=== PATIENT | female | born 1990 | race Caucasian/White ===

== ENCOUNTER 2019-05-08 10:18 | Emergency (ER) | payer BC ==
[2019-05-08] MEDS ORDERED: SODIUM CHLORIDE 0.9% 500 ML 500 ML IV ONE (11:02)
[2019-05-08] MEDS ORDERED: SODIUM CHLORIDE 0.9% 1,000 ML IV ONE (11:02)
[2019-05-08 12:02] LABS: Appearance,Urine Clear (Clear); Bilirubin,Urine Negative (Negative); Blood,Urine Negative (Negative); Color,Urine Colorless; Glucose,Urine (UA) Negative (Negative); Ketones,Urine Negative (Negative); Leukocyte Esterase,Urine Negative (Negative); Nitrite,Urine Negative (Negative); Protein,Urine Negative (Negative); Specific Gravity,Urine 1.006 (1.001-1.035); Urobilinogen,Urine <2.0 mg/dL (<2.0)
--- NOTE | 2019-05-08 12:02 | ED ---
Abdominal Pain HPI - General Chief Complaint: Abdominal Pain Stated Complaint: upper abdominal pain Time Seen by Provider: 05/08/19 11:01 Source: patient Mode of arrival: ambulatory Limitations: no limitations - History of Present Illness Initial Comments: 28-year-old female personal history of factor V deficiency family history of aortic dissection less than age 30 (2 second cousins on mother's side) presents emergency department for chief complaint of epigastric pain on and off for 6 weeks. Patient states she has had epigastric pain occasionally she states the pattern is random she states that it seems to happen while she is walking at times and causes her to feel lightheaded. Patient states it is a burning pain denies a sharp stabbing pain/tripping tearing pain she denies any radiation to the back. Patient denies any chest pain she states sometimes she feels her breath. Patient denies fever, vomiting, diarrhea, alcohol abuse, NSAID abuse. Denies cough or URI symptoms. Denies chest pain. Patient states she is under a lot of stress. Denies melena or hematochezia. Patient states it began this morning again for the fourth time and she was concerned and presents emergency department for evaluation. Remaining review of systems negative patient appears well arrival vital signs stable no signs of acute distress. - Related Data Home Medications Medication Instructions Recorded Confirmed Aspirin/Acetaminophen/Caffeine 2 tab PO Q12H PRN 05/08/19 05/08/19 [Excedrin Extra Strength Caplet] Previous Rx's Medication Instructions Recorded Omeprazole 20 mg PO DAILY 15 Days #15 05/08/19 capsule. Allergies Allergy/AdvReac Type Severity Reaction Status Date / Time No Known Allergies Allergy Verified 05/08/19 11:05 Review of Systems ROS Statement: Those systems with pertinent positive or pertinent negative responses have been documented in the HPI. ROS Other: All systems not noted in ROS Statement are negative. Past Medical History Past Medical History: Asthma History of Any Multi-Drug Resistant Organisms: None Reported Past Surgical History: Appendectomy Additional Past Surgical History / Comment(s): appendix 2009, wisdom teeth extracted. Past Anesthesia/Blood Transfusion Reactions: No Reported Reaction Past Psychological History: No Psychological Hx Reported Smoking Status: Never smoker Past Alcohol Use History: None Reported Past Drug Use History: None Reported - Past Family History Father Family Medical History: Cancer Additional Family Medical History / Comment(s): thyroid cancer, and kidney failure General Exam - General Exam Comments Initial Comments: General: The patient is awake and alert, in no distress, and does not appear acutely ill. Eye: Pupils are equal, round and reactive to light, extra-ocular movements are intact. No nystagmus. There is normal conjunctiva bilaterally. No signs of icterus. Ears, nose, mouth and throat: There are moist mucous membranes and no oral l esions. Neck: The neck is supple, there is no tenderness or JVD. Cardiovascular: There is a regular rate and rhythm. No murmur, rub or gallop is appreciated. Respiratory: Lungs are clear to auscultation, respirations are non-labored, breath sounds are equal. No wheezes, stridor, rales, or rhonchi. Gastrointestinal: Soft, non-distended, mild tenderness to palpation of the epigastric portion of the abdomen without masses or organomegaly noted. There is no rebound or guarding present. No CVA tenderness. Bowel sounds are unremarkable. Musculoskeletal: Normal ROM, no tenderness. Strength 5/5. Sensation intact. Pulses equal bilaterally 2+. Neurological: A&O x 3. CN II-XII intact, There are no obvious motor or sensory deficits. Coordination appears grossly intact. Speech is normal. Skin: Skin is warm and dry and no rashes or lesions are noted. Psychiatric: Cooperative, appropriate mood & affect, normal judgment. Limitations: no limitations Course Vital Signs 05/08/19 05/08/19 10:35 15:02 Temperature 98.1 F 98.6 F Pulse Rate 74 68 Respiratory 17 16 Rate Blood Pressure 139/69 112/69 O2 Sat by Pulse 100 100 Oximetry Medical Decision Making - Medical Decision Making Given patient's history of factor V nonspecific appearing epigastric pain patient's CT angiography obtained revealing no evidence of dissection or pulmonary embolism. Patient had no elevation of lipase no increase in transaminase levels are alkaline phosphatase. Patient chest x-ray negative EKG no acute findings with a negative troponin. Patient appeared well symptoms atypical. Differential diagnosis includes peptic ulcer. After discussing case with attending provider Dr. Lopez refjudi patient still for discharge with outpatient primary care follow-up I did admit the patient get a referral to gastroenterology, and possible cardiac evaluation with Holter monitor for these episodes; although I have low suspicion for cardiac process at this time given history. Return parameters were discussed verbalized understanding and states she is comfortable discharge at this time. - Lab Data Result diagrams: 05/08/19 11:40 05/08/19 11:40 Lab Results 05/08/19 05/08/19 05/08/19 Range/Units 11:40 11:40 11:40 WBC 3.8 (3.8-10.6) k/uL RBC 4.49 (3.80-5.40) m/uL Hgb 14.1 (11.4-16.0) gm/dL Hct 41.0 (34.0-46.0) % MCV 91.4 (80.0-100.0) fL MCH 31.4 (25.0-35.0) pg MCHC 34.3 (31.0-37.0) g/dL RDW 12.5 (11.5-15.5) % Plt Count 285 (150-450) k/uL Neutrophils % 62 % Lymphocytes % 29 % Monocytes % 4 % Eosinophils % 1 % Basophils % 1 % Neutrophils # 2.4 (1.3-7.7) k/uL Lymphocytes # 1.1 (1.0-4.8) k/uL Monocytes # 0.2 (0-1.0) k/uL Eosinophils # 0.1 (0-0.7) k/uL Basophils # 0.0 (0-0.2) k/uL Sodium 141 (137-145) mmol/L Potassium 4.7 (3.5-5.1) mmol/L Chloride 105 (98-107) mmol/L Carbon Dioxide 27 (22-30) mmol/L Anion Gap 9 mmol/L BUN 8 (7-17) mg/dL Creatinine 0.67 (0.52-1.04) mg/dL Est GFR (CKD-EPI)AfAm >90 (>60 ml/min/1.73 sqM) Est GFR (CKD-EPI)NonAf >90 (>60 ml/min/1.73 sqM) Glucose 103 H (74-99) mg/dL Calcium 9.5 (8.4-10.2) mg/dL Total Bilirubin 0.6 (0.2-1.3) mg/dL AST 23 (14-36) U/L ALT 25 (9-52) U/L Alkaline Phosphatase 78 (38-126) U/L Troponin I <0.012 (0.000-0.034) ng/mL Total Protein 7.9 (6.3-8.2) g/dL Albumin 4.7 (3.5-5.0) g/dL Amylase 74 (30-110) U/L Lipase 202 (23-300) U/L Urine Color Urine Appearance (Clear) Urine pH (5.0-8.0) Ur Specific [place] (1.001-1.035) Urine Protein (Negative) Urine Glucose (UA) (Negative) Urine Ketones (Negative) Urine Blood (Negative) Urine Nitrite (Negative) Urine Bilirubin (Negative) Urine Urobilinogen (<2.0) mg/dL Ur Leukocyte Esterase (Negative) Urine HCG, Qual (Not Detectd) 05/08/19 05/08/19 Range/Units 11:40 11:40 WBC (3.8-10.6) k/uL RBC (3.80-5.40) m/uL Hgb (11.4-16.0) gm/dL Hct (34.0-46.0) % MCV (80.0-100.0) fL MCH (25.0-35.0) pg MCHC (31.0-37.0) g/dL RDW (11.5-15.5) % Plt Count (150-450) k/uL Neutrophils % % Lymphocytes % % Monocytes % % Eosinophils % % Basophils % % Neutrophils # (1.3-7.7) k/uL Lymphocytes # (1.0-4.8) k/uL Monocytes # (0-1.0) k/uL Eosinophils # (0-0.7) k/uL Basophils # (0-0.2) k/uL Sodium (137-145) mmol/L Potassium (3.5-5.1) mmol/L Chloride (98-107) mmol/L Carbon Dioxide (22-30) mmol/L Anion Gap mmol/L BUN (7-17) mg/dL Creatinine (0.52-1.04) mg/dL Est GFR (CKD-EPI)AfAm (>60 ml/min/1.73 sqM) Est GFR (CKD-EPI)NonAf (>60 ml/min/1.73 sqM) Glucose (74-99) mg/dL Calcium (8.4-10.2) mg/dL Total Bilirubin (0.2-1.3) mg/dL AST (14-36) U/L ALT (9-52) U/L Alkaline Phosphatase (38-126) U/L Troponin I (0.000-0.034) ng/mL Total Protein (6.3-8.2) g/dL Albumin (3.5-5.0) g/dL Amylase (30-110) U/L Lipase (23-300) U/L Urine Color Colorless Urine Appearance Clear (Clear) Urine pH 7.0 (5.0-8.0) Ur Specific [place] 1.006 (1.001-1.035) Urine Protein Negative (Negative) Urine Glucose (UA) Negative (Negative) Urine Ketones Negative (Negative) Urine Blood Negative (Negative) Urine Nitrite Negative (Negative) Urine Bilirubin Negative (Negative) Urine Urobilinogen <2.0 (<2.0) mg/dL Ur Leukocyte Esterase Negative (Negative) Urine HCG, Qual Not Detected (Not Detectd) - EKG Data EKG Comments: Ventricular rate 70 bpm, IA interval 130 ms, QRS ration 90 ms, QT/QTC 388/[address] elevation or depression. Some artifact noted. EKG personally interpreted and reviewed by my attending provider Disposition Clinical Impression: Epigastric pain Disposition: HOME SELF-CARE Condition: Good Instructions (If sedation given, give patient instructions): Abdominal Pain (ED) Additional Instructions: Please use medication as discussed. Please follow-up with family doctor in the next 2 days as discussed. Please return to emergency room if the symptoms increase or worsen or for any other concerns. Prescriptions: Omeprazole 20 mg PO DAILY 15 Days #15 capsule.dr Is patient prescribed a controlled substance at d/c from ED?: No Referrals: Aniceto Becerra MD [Primary Care Provider] - 1-2 days Time of Disposition: 14:25
[2019-05-08 12:04] LABS: Basophils % (A) 1 %; Eosinophils # (A) 0.1 k/uL (0-0.7); Eosinophils % (A) 1 %; HGB 14.1 gm/dL (11.4-16.0); Lymphocytes # (A) 1.1 k/uL (1.0-4.8); Lymphocytes % (A) 29 %; MCH 31.4 pg (25.0-35.0); MCHC 34.3 g/dL (31.0-37.0); MCV 91.4 fL (80.0-100.0); Monocytes # (A) 0.2 k/uL (0-1.0); Monocytes % (A) 4 %; Neutrophils # (A) 2.4 k/uL (1.3-7.7); Neutrophils % (A) 62 %; Platelet Count 285 k/uL (150-450); RBC 4.49 m/uL (3.80-5.40); RDW 12.5 % (11.5-15.5); WBC 3.8 k/uL (3.8-10.6)
[2019-05-08 12:16] LABS: ALT 25 U/L (9-52); AST 23 U/L (14-36); African American GFR (CKD) >90 (>60 ml/min/1.73 sqM); Albumin 4.7 g/dL (3.5-5.0); Alkaline Phosphatase 78 U/L (38-126); Amylase 74 U/L (30-110); Anion Gap 9 mmol/L; Blood Urea Nitrogen 8 mg/dL (7-17); Calcium 9.5 mg/dL (8.4-10.2); Carbon Dioxide 27 mmol/L (22-30); Chloride 105 mmol/L (98-107); Glucose 103 mg/dL (74-99); Non-African American GFR(CKD) >90 (>60 ml/min/1.73 sqM); Potassium 4.7 mmol/L (3.5-5.1); Sodium 141 mmol/L (137-145); Total Bilirubin 0.6 mg/dL (0.2-1.3); Total Protein 7.9 g/dL (6.3-8.2)
--- NOTE | 2019-05-08 13:16 | CT ---
EXAMINATION TYPE: CT angio thor/abd pel aorta DATE OF EXAM: 05/08/2019 COMPARISON: None. HISTORY: midsternal to epigastric pain CT DLP: 805 mGycm. Automated Exposure Control for Dose Reduction was Utilized. CONTRAST: CTA scan of the thorax, abdomen and pelvis is performed with IV Contrast, patient injected with 100 m L of Isovue 370. FINDINGS: VASCULAR: Ascending aorta measures up to 2.9 cm axial image 33. There is normal three-vessel origin f september. There is patency of the celiac artery, SMA, bilateral renal arteries with accessory left r enal artery noted axial image 111 and LIZETH. Patent iliac arteries bilaterally into common femoral and branching superficial and deep femoral arteries without significant plaque or stenosis. No linear hyp odensity to suggest dissection. Small amount of curvilinear fluid surrounds the ascending aorta axial image 29. Hounsfield units are less than 20. Adjacent aortic wall is well-defined. Pericardial reces s fluid is strongly suspected. Suboptimal study as noncontrast and delayed imaging not performed. No ravi extravasation of contrast noted. LUNGS: Trace left greater than right pleural effusions. Patchy left basilar atelectatic changes MEDIASTINUM: There are no greater than 1 cm hilar or mediastinal lymph nodes. No cardiomegaly or pe ricardial effusion is seen. OTHER: No additional significant abnormality is seen. LIVER/GB: No significant abnormality is appreciated. PANCREAS: No significant abnormality is seen. SPLEEN: No significant abnormality is seen. ADRENALS: No significant abnormality is seen. KIDNEYS: No significant abnormality is seen. BOWEL: No significant abnormality is seen. GENITAL ORGANS: No gross abnormality seen. LYMPH NODES: No greater than 1cm abdominal or pelvic lymph nodes are appreciated. OSSEOUS STRUCTURES: No significant abnormality is seen. OTHER: No significant additional abnormality is seen. IMPRESSION: No convincing CT evidence for aortic aneurysm or dissection. No acute findings clearly se en.
[2019-05-08 15:04] VITALS: BP 112/69; PULSE 68; RESP 16; TEMP 98.6
== END 2019-05-08 15:02 | disposition home or self-care (01) ==
LOC: EC 10:18
DX: R10.13 Epigastric pain (principal); D68.2 Hereditary deficiency of other clotting factors; Z90.89 Acquired absence of other organs
CPT/HCPCS: 36415; 93005; 80053; 82150; 83690; 84484; 85025; 81003; 81025; 71275; 74174; 99284; 96360; Q9967

== ENCOUNTER 2021-04-01 09:10 | Emergency (ER) | payer BC ==
[2021-04-01 09:27] VITALS: RESP 18; TEMP 98.3
--- NOTE | 2021-04-01 09:46 | ED ---
General Adult HPI - General Chief complaint: Shortness of Breath Stated complaint: abd & back pain Time Seen by Provider: 04/01/21 09:29 Source: patient Mode of arrival: ambulatory Limitations: no limitations - History of Present Illness Initial comments: Dictation was produced using [employer] dictation software. please excuse any grammatical, word or spelling errors. Chief Complaint: 30-year-old female presents with pleuritic chest pain History of Present Illness: Patient is a 30-year-old female she presents today with pleuritic chest pain for the last 48 hours. Patient has history of factor V Leiden. Patient's tested positive for colon with several weeks ago. She has been having cold symptoms for the last week. Patient last night had some Pain that resolved on its own. She had some shortness of breath but did not feel any dyspnea at this time. She has some bilateral inferior chest pain is worse with inspiration. Denies any shortness of breath currently. The ROS documented in this emergency department record has been reviewed and confirmed by me. Those systems with pertinent positive or negative responses have been documented in the HPI. All other systems are other negative and/or noncontributory. PHYSICAL EXAM: General Impression: Alert and oriented x3, not in acute distress HEENT: Normocephalic atraumatic, extra-ocular movements intact, pupils equal and reactive to light bilaterally, mucous membranes moist. Cardiovascular: Heart regular rate and rhythm Chest: Able to complete full sentences, no retractions, no tachypnea Abdomen: abdomen soft, non-tender, non-distended, no organomegaly Musculoskeletal: Pulses present and equal in all extremities, no peripheral edema Motor: no focal deficits noted Neurological: CN II-XII grossly intact, no focal motor or sensory deficits noted Skin: Intact with no visualized rashes Psych: Normal affect and mood ED course:30-year-old female who presents emergency department for chest pain. She is pain is atypical. Vital signs upon arrival are within acceptable limits. Patient denies any severe symptoms at this time. Patient is well-appearing at bedside. She is concerned about having a blood clot due to Pain last night and history of factor V Leiden. Leukopenia of 2.9, lymphocytopenia of 0.9, coag panel is unremarkable. D-dimer is negative. Metabolic panel is unremarkable. Urine hCG is negative. Coronal virus is positive. Chest x-ray shows no acute processes. Patient reevaluated at bedside 10:50 AM on the be in stable medical condition. Patient not hypoxic not showing signs rest per distress. Patient is agreeable for discharge. - Related Data Home Medications Medication Instructions Recorded Confirmed Cholecalciferol (Vitamin D3) 125 mcg PO DAILY 04/01/21 04/01/21 [Vitamin D3 (125 MCG = 5,000 IU)] Garlic 1 tab PO DAILY 04/01/21 04/01/21 Ivermectin 15 mg PO DAILY 04/01/21 04/01/21 Multivit with Calcium,Iron,Min 1 tab PO DAILY 04/01/21 04/01/21 [Women's Multivitamin] Progesterone, Micronized 200 mg PO DIRECTED 04/01/21 04/01/21 [Progesterone] Quercetin 1 cap PO DAILY 04/01/21 04/01/21 Vitamin A [Vitamin A (8,000 Units 2,400 mcg PO DAILY 04/01/21 04/01/21 = 2,400 MCG)] busPIRone HCL 5 mg PO BID PRN 04/01/21 04/01/21 Allergies Allergy/AdvReac Type Severity Reaction Status Date / Time No Known Allergies Allergy Verified 04/01/21 10:40 Review of Systems ROS Statement: Those systems with pertinent positive or pertinent negative responses have been documented in the HPI. ROS Other: All systems not noted in ROS Statement are negative. Past Medical History Past Medical History: Asthma Additional Past Medical History / Comment(s): factor 5. History of Any Multi-Drug Resistant Organisms: None Reported Past Surgical History: Appendectomy Additional Past Surgical History / Comment(s): appendix 2009, wisdom teeth extracted. Past Anesthesia/Blood Transfusion Reactions: No Reported Reaction Past Psychological History: No Psychological Hx Reported Smoking Status: Never smoker Past Alcohol Use History: Occasional Past Drug Use History: None Reported - Past Family History Father Family Medical History: Cancer Additional Family Medical History / Comment(s): thyroid cancer, and kidney failure General Exam Limitations: no limitations Course Vital Signs 04/01/21 09:21 Temperature 98.3 F Pulse Rate 88 Respiratory 18 Rate Blood Pressure 116/75 O2 Sat by Pulse 98 Oximetry Medical Decision Making - Lab Data Result diagrams: 04/01/21 09:55 04/01/21 09:55 Lab Results 04/01/21 04/01/21 04/01/21 Range/Units 09:55 09:55 09:55 WBC 2.9 L (3.8-10.6) k/uL RBC 4.75 (3.80-5.40) m/uL Hgb 15.4 (11.4-16.0) gm/dL Hct 43.2 (34.0-46.0) % MCV 91.0 (80.0-100.0) fL MCH 32.5 (25.0-35.0) pg MCHC 35.7 (31.0-37.0) g/dL RDW 12.8 (11.5-15.5) % Plt Count 158 (150-450) k/uL MPV 7.6 Neutrophils % 59 % Lymphocytes % 29 % Monocytes % 8 % Eosinophils % 0 % Basophils % 1 % Neutrophils # 1.7 (1.3-7.7) k/uL Lymphocytes # 0.9 L (1.0-4.8) k/uL Monocytes # 0.2 (0-1.0) k/uL Eosinophils # 0.0 (0-0.7) k/uL Basophils # 0.0 (0-0.2) k/uL PT 10.6 (9.0-12.0) sec INR 1.0 (<1.2) APTT 23.7 (22.0-30.0) sec D-Dimer 0.48 (<0.60) mg/L FEU Sodium (137-145) mmol/L Potassium (3.5-5.1) mmol/L Chloride (98-107) mmol/L Carbon Dioxide (22-30) mmol/L Anion Gap mmol/L BUN (7-17) mg/dL Creatinine (0.52-1.04) mg/dL Est GFR (CKD-EPI)AfAm (>60 ml/min/1.73 sqM) Est GFR (CKD-EPI)NonAf (>60 ml/min/1.73 sqM) Glucose (74-99) mg/dL Calcium (8.4-10.2) mg/dL Urine HCG, Qual Not Detected (Not Detectd) Coronavirus (PCR) (Not Detectd) 04/01/21 04/01/21 Range/Units 09:55 10:00 WBC (3.8-10.6) k/uL RBC (3.80-5.40) m/uL Hgb (11.4-16.0) gm/dL Hct (34.0-46.0) % MCV (80.0-100.0) fL MCH (25.0-35.0) pg MCHC (31.0-37.0) g/dL RDW (11.5-15.5) % Plt Count (150-450) k/uL MPV Neutrophils % % Lymphocytes % % Monocytes % % Eosinophils % % Basophils % % Neutrophils # (1.3-7.7) k/uL Lymphocytes # (1.0-4.8) k/uL Monocytes # (0-1.0) k/uL Eosinophils # (0-0.7) k/uL Basophils # (0-0.2) k/uL PT (9.0-12.0) sec INR (<1.2) APTT (22.0-30.0) sec D-Dimer (<0.60) mg/L FEU Sodium 140 (137-145) mmol/L Potassium 3.8 (3.5-5.1) mmol/L Chloride 104 (98-107) mmol/L Carbon Dioxide 26 (22-30) mmol/L Anion Gap 10 mmol/L BUN 8 (7-17) mg/dL Creatinine 0.70 (0.52-1.04) mg/dL Est GFR (CKD-EPI)AfAm >90 (>60 ml/min/1.73 sqM) Est GFR (CKD-EPI)NonAf >90 (>60 ml/min/1.73 sqM) Glucose 101 H (74-99) mg/dL Calcium 9.2 (8.4-10.2) mg/dL Urine HCG, Qual (Not Detectd) Coronavirus (PCR) Detected A (Not Detectd) Disposition Clinical Impression: Coronavirus infection Disposition: HOME SELF-CARE Condition: Good Instructions (If sedation given, give patient instructions): Coronavirus Disease 2019 (COVID-19) Is patient prescribed a controlled substance at d/c from ED?: No Referrals: Stephen Wyatt MD [Primary Care Provider] - 1-2 days
[2021-04-01 10:10] LABS: Basophils % (A) 1 %; Eosinophils % (A) 0 %; HCT 43.2 % (34.0-46.0); HGB 15.4 gm/dL (11.4-16.0); Lymphocytes # (A) 0.9 k/uL (1.0-4.8); Lymphocytes % (A) 29 %; MCH 32.5 pg (25.0-35.0); MCHC 35.7 g/dL (31.0-37.0); Mean Platelet Volume 7.6; Monocytes # (A) 0.2 k/uL (0-1.0); Monocytes % (A) 8 %; Neutrophils # (A) 1.7 k/uL (1.3-7.7); Neutrophils % (A) 59 %; Platelet Count 158 k/uL (150-450); RBC 4.75 m/uL (3.80-5.40); RDW 12.8 % (11.5-15.5); WBC 2.9 k/uL (3.8-10.6)
[2021-04-01 10:23] LABS: African American GFR (CKD) >90 (>60 ml/min/1.73 sqM); Anion Gap 10 mmol/L; Blood Urea Nitrogen 8 mg/dL (7-17); Calcium 9.2 mg/dL (8.4-10.2); Carbon Dioxide 26 mmol/L (22-30); Chloride 104 mmol/L (98-107); Glucose 101 mg/dL (74-99); Non-African American GFR(CKD) >90 (>60 ml/min/1.73 sqM); Potassium 3.8 mmol/L (3.5-5.1); Sodium 140 mmol/L (137-145)
[2021-04-01 10:26] LABS: Partial Thromboplastin Time 23.7 sec (22.0-30.0); Prothrombin Time 10.6 sec (9.0-12.0)
--- NOTE | 2021-04-01 10:49 | XR ---
EXAMINATION TYPE: XR chest 1V portable DATE OF EXAM: 04/01/2021 COMPARISON: NONE HISTORY: Chest pain TECHNIQUE: Single frontal view of the chest is obtained. FINDINGS: There is no focal air space opacity, pleural effusion, or pneumothorax seen. The cardiac silhouette size is within normal limits. The osseous structures are intact. IMPRESSION: 1. No acute process.
[2021-04-01 11:11] VITALS: BP 111/71; PULSE 81
== END 2021-04-01 11:11 | disposition home or self-care (01) ==
LOC: EC 09:10
DX: U07.1 COVID-19 (principal); J45.909 Unspecified asthma, uncomplicated; Z90.49 Acquired absence of other specified parts of digestive tract
CPT/HCPCS: 36415; 71045; 80048; 81025; 85025; 85379; 85610; 85730; 87635; 99285